=== PATIENT | female | born 1950 | race Caucasian/White ===

== ENCOUNTER 2020-11-04 15:46 | Inpatient (IN) ==
[2020-11-04] MEDS ORDERED: fentaNYL CITRATE/PF 50 MCG/ML AMPUL ONE (15:49)
[2020-11-04] MEDS ORDERED: DIPHTH,PERTUSS(ACELL),TET VAC 0.5 ML VIAL IM ONE ×2 (15:50→17:22)
[2020-11-04] MEDS ORDERED: fentaNYL CITRATE/PF 50 MCG/ML AMPUL IV ONE (15:54)
--- NOTE | 2020-11-04 16:03 | ERNOTE ---
Trauma/Assault HPI - Narrative Date of Service: 11/04/20 - General Stated Complaint: injuries from a fall Time Seen by Provider: 11/04/20 15:49 Source: patient Exam Limitations: no limitations - Immun/Allergies/Home Medications Immunizations: IMMUNIZATION HX Immunizations Up to Date Yes History of Influenza Vaccine No Hx Pneumococcal Vaccination No Allergies/Adverse Reactions: Allergies Penicillins Allergy (Intermediate, Verified 11/04/20 15:53) Hives Home Medications: HOME MEDICATIONS Atorvastatin Calcium 80 mg PO DAILY 11/04/20 [Last Taken Unknown] Irbesartan 150 mg PO DAILY 11/04/20 [Last Taken Unknown] Tetrahydrz/Dext 70/Peg 400/Pvp [Eye Drops] 1 ml OP 11/04/20 [Last Taken Unknown] amLODIPine BESYLATE [Norvasc] 5 mg PO DAILY 11/04/20 [Last Taken Unknown] rOPINIRole HCL [Requip] 0.25 mg PO HS 11/04/20 [Last Taken Unknown] - History of Present Illness Narrative: Patient presents to the ED for fall from a ladder with left hip pain. She was up about 3 rungs and lost her balance while painting, falling onto dirt. Pain left hip immediately after fall. Did hit her head, no LOC though. No CP or SOB. No other spinal pain. Denies N/T/W. Left elbow also impacted dirt with abrasion and minimal bleeding but she denies much pain there. Fentanyl 50mcg given by EMS. Location Occurred: Reports: home Pain Location: Reports: other - left hip primarily Method of Injury: Reports: fall Severity: severe Modifying Factors - (Improves): Reports: rest Modifying Factors - (Worsens): Reports: movement Loss of Consciousness: Reports: no loss of consciousness Associated Symptoms - Trauma: Denies: headache, chest pain, shortness of breath, abdominal pain Review of Systems - Review of Systems Constitutional: Absent: fever EYE: Present: no symptoms reported ENT: Present: no symptoms reported Respiratory: Absent: shortness of breath Cardiology: Absent: chest pain Gastrointestinal/Abdominal: Absent: abdominal pain Musculoskeletal: Present: See HPI Skin: Present: See HPI Neurological: Absent: weakness, numbness, tingling All Other Systems: All systems neg except as marked Medical History (Last Reviewed 11/04/20 @ 16:00 by Moses Sheikh MD) CVA (cerebral vascular accident) Diabetes Hypertension Surgical History: Surgical History (Last Reviewed 11/04/20 @ 16:00 by Moses Sheikh MD) H/O chest tube placement H/O lumbar discectomy Hx of appendectomy Hx of hysterectomy Social History: (Last Reviewed 11/04/20 @ 16:00 by Moses Sheikh MD) Tobacco: Smoking Status: Current every day smoker Physical Exam - Physical Exam General Appearance: Present: alert, no apparent distress Head Exam: Present: other - Hematoma left temporal/parietal area. Absent: Ruff's Sign, raccoon eyes Eye Exam: Normal inspection: bilateral, PERRL: bilateral, EOMI: bilateral Ears, Nose, Throat: Present: normal ENT inspection Neck: Present: normal inspection, other - distracting injury. No localizing point vertebral tenderness posterior C-spine. No clinical suggesiton of fracture or ligamentous injury, cleared after CT Respiratory: Present: no respiratory distress, normal breath sounds, no accessory muscle use, lungs clear Cardiovascular/Chest: Present: regular rate, rhythm, normal peripheral pulses Gastrointestinal/Abdominal: Present: normal bowel sounds, nontender, nondistended, soft Back Exam: Absent: vertebral tenderness, decreased range of motion Extremity Exam: Present: other - Tenderness left hip with abrasiona left lateral hip. Mild left elbow tenderness. Full ROM there though. No other point bone tenderness Neurological Exam: Present: alert, no motor/sensory deficits Skin Exam: Present: normal color, warm/dry, other - abrasion left elbow, no laceration to repair. Progress - Results and Orders Patient's Lab Results:: I have reviewed the patient's lab results. - Vital Signs Patient's Vital Signs:: I have reviewed the patient's vital signs. Vital Signs: Vital Signs 11/04/20 15:46 Temperature 36.7 C Pulse Rate 74 Respiratory Rate 17 Blood Pressure 165/70 H O2 Sat by Pulse Oximetry 93 - EKG EKG #1 EKG: NSR EKG read: Interp. by me EKG Comments: NSR rate 73. NSR rate 73. PVCs, no evidence of STEMI - X-Ray X-Ray #1 X-Ray: chest Interpretation: Interp. by me X-ray Comments: No real time radiology reads. I personally reviewed all x-ray images, no acute chest process noted. X-Ray #2 X-Ray: elbow Interpretation: Interp. by me X-ray Comments: No real time radiology reads. I personally reviewed all x-ray images, no acute fracture noted. X-Ray #3 X-Ray: hip Interpretation: Interp. by me X-ray Comments: No real time radiology reads. I personally reviewed all x-ray images, acute subcapital hip fracture noted. - CT/Ultrasound CT/Ultrasound Narrative: I reviewed the official radiology reports for CT head and c-spine - Progress/Reassessment Progress Note-Subjective: 11/04/20 17:37 Patient given IV pain medications. I Carlos'gabriel Jacinto with x-ray images, patient to be admitted to the hospital and Ortho will be consulted. 11/04/20 18:[address] Dunbar who is air conditioning technician for IM. He will admit, requests HGBA1C which I added on. UA still pending at this time. Departure Clinical Impression: Fall from ladder, Head injury, Musculoskeletal pain, Closed left hip fracture, Injury of left elbow - Departure Disposition: Still a patient Condition: Fair Critical Care Time - Critical Care Critical Time Spent:: No
[2020-11-04] MEDS ORDERED: LORazepam 2 MG/ML DISP.SYRIN IV ONE (16:23)
[2020-11-04] MEDS ORDERED: NORMAL SALINE 1,000 ML IV ONE (17:03)
[2020-11-04 17:38] LABS: Mean Cell Volume 89.8 fl (78-100); Mean Corpuscular Hemoglobin 28.6 pg (27-31); Mean Corpuscular Hgb Conc 31.8 g/dl (32-36); Mean Platelet Volume 11.2 fl (8-12.5); Neutrophil # 8.5 K/mm3 (1.3-6.0); Neutrophil % 78.9 % (42-75.0); Platelet Count 169 K/mm3 (150-450); Red Cell Distribution Width 13.1 % (11.5-14.0); White Blood Count 10.7 K/mm3 (4.0-10.5)
[2020-11-04 17:53] LABS: Urine Bilirubin Negative (NEGATIVE); Urine Blood Negative /ul (NEGATIVE); Urine Ketone Negative (NEGATIVE); Urine Protein Negative (NEGATIVE); Urine Specific Gravity 1.025 SP.GR. (1.005-1.010); Urine Urobilinogen Normal (NORMAL)
[2020-11-04 17:55] LABS: Prothrombin Time (Patient) 10.5 Seconds (9.1-10.7)
[2020-11-04 17:58] LABS: INR 1.01 INR (0.92-1.08); Partial Thrombolplastin Time 25.3 Seconds (24-32)
[2020-11-04 18:00] LABS: Albumin * 3.8 gm/dl (3.4-5.0); Anion Gap 11.9 mmol/L (6.8-13.8); BUN/Creatinine Ratio 10.1 (9.0-21.6); Bilirubin, Total 0.7 mg/dL (0.0-1.1); Ca. Corrected For Albumin 8.2 mg/dL (8.4-10.2); Calcium * 8.4 mg/dL (7.9-10.9); Carbon Dioxide 28.1 mmol/L (24-32.6); Total Protein 7.3 gm/dL (6.2-8.2)
[2020-11-04 18:34] LABS: Urine Appearance Slightly Cloudy (CLEAR); Urine Bacteria 3+; Urine Color Yellow; Urine Nitrite Positive (NEGATIVE); Urine RBC 0-5 /hpf (0-5); Urine WBC 25-50 /hpf (0-5)
[2020-11-04] MEDS ORDERED: LEVOFLOXACIN IN DEXTROSE 5 % 500 MG/100 ML BAG IV ONE (18:35)
[2020-11-04 18:59] LABS: Hemoglobin A1C 6.9 % (3.80-5.60)
[2020-11-04] MEDS: ROSUVASTATIN CALCIUM 20 MG TABLET PO SCH (21:16)
[2020-11-04] MEDS: amLODIPine BESYLATE 5 MG TABLET PO SCH (21:16)
[2020-11-04] MEDS: rOPINIRole HCL 0.5 MG TABLET PO SCH (21:17)
[2020-11-04] MEDS: HYDROmorphone HCL 1 MG/ML DISP.SYRIN IV PRN (21:18)
[2020-11-04] MEDS: TETRAHYDROZOLINE HCL OP SCH (21:24)
[2020-11-05] MEDS: DEXTROSE 5%-0.5 NORMAL SALINE 1,000 ML IV PRN ×2 (02:23→15:46)
[2020-11-05] MEDS: oxyCODONE HCL/ACETAMINOPHEN 1 TAB TABLET PO PRN ×2 (04:31→18:19)
--- NOTE | 2020-11-05 06:05 | HP ---
Chief Complaint - Chief Complaint Date of Service: 11/05/20 Time of Service: 06:05 Chief Complaint: Fall History of Present Illness: Padma Rain is a 70-year-old white female with past medical history of significant for hypertension, diabetes mellitus type 2, history of CVA who was admitted on 11/04/2020 for a fall and left hip pain. She said that she was painting her house blue and was 3 rungs high on a ladder when she lost control and fell to the ground. She immediately felt left hip pain and was not able to stand up. She also hit her left elbow when falling down. Her son called the EMS and she was brought to the emergency room. She denied any chest pains, palpitations, diaphoresis, tremors, blunting of vision before she fell down. She did not lose consciousness. In the emergency room she was found to have mild leukocytosis, Cr 1.29, normal platelets, urinalysis with possible urinary tract infection, and a left subcapital hip fracture. Her x-rays were shown to orthopedics and they will be seeing patient today. She was then admitted for orthopedic intervention. Medical History (Last Reviewed 11/04/20 @ 21:53 by Sunitha Gaviria RN) CVA (cerebral vascular accident) Diabetes Hypertension Surgical History: Surgical History (Last Reviewed 11/04/20 @ 21:53 by Sunitha Gaviria RN) H/O chest tube placement H/O lumbar discectomy Hx of appendectomy Hx of hysterectomy Social History: (Last Updated 11/04/20 @ 21:54 by Sunitha Gavirai RN) Tobacco: Smoking Status: Current every day smoker tobacco type: cigarettes Smoking packs per day: 2 quit status: not considering quitting Alcohol: alcohol intake: former Substance Use: substance use type: does not use Review Of Systems (GEN) - Review of Systems Generalized/Overall Review: Absent: Weakness, Chills, Fever EENTM: Absent: Blurred Vision Respiratory: Absent: Cough, Shortness of Breath, Orthopnea Cardiac: Absent: Chest Pain, Edema, Palpitations Abdominal: Absent: Nausea, Vomiting, Abdominal Pain Genitourinary: Present: Frequency. Absent: Urgency, Dysuria Musculoskeletal: Present: Joint Pain Neurological: Absent: Headache Skin: Absent: Lesions, Rash Misc: All systems neg except as marked Immunizations: IMMUNIZATION HX Immunizations Up to Date Yes History of Influenza Vaccine No Hx Pneumococcal Vaccination No Allergies/Adverse Reactions: Allergies Allergy/AdvReac Type Severity Reaction Status Date / Time Penicillins Allergy Intermediate Hives Verified 11/04/20 15:53 Home Medications: HOME MEDICATIONS Atorvastatin Calcium 80 mg PO HS 11/04/20 [Last Taken Unknown] Irbesartan 150 mg PO DAILY 11/04/20 [Last Taken Unknown] Tetrahydrz/Dext 70/Peg 400/Pvp [Eye Drops] 1 ml OP BID 11/04/20 [Last Taken Unknown] amLODIPine BESYLATE [Norvasc] 5 mg PO HS 11/04/20 [Last Taken Unknown] rOPINIRole HCL [Requip] 0.25 mg PO HS 11/04/20 [Last Taken Unknown] Exam - Exam Vital Signs: Vital Signs - Last Taken Temp 36.5 C 11/05/20 02:27 Pulse 82 11/05/20 02:27 Resp 20 11/05/20 02:27 BP 153/71 H 11/05/20 02:27 Pulse Ox 94 11/05/20 02:27 Constitutional: Present: Alert, Oriented x3, Cooperative ENT Exam: Present: hearing grossly normal Eye Exam: bilateral eye: normal inspection, PERRL, EOMI Neck: Present: supple. Absent: lymphadenopathy (R), lymphadenopathy (L) Respiratory: Present: normal breath sounds, No rales, No wheezing Cardiovascular/Chest: Present: regular rate, rhythm, no JVD, no murmur Abdomen: Present: Normal bowel sounds, soft, nontender, obese Extremity: Present: no calf tenderness. Absent: lower extremity edema Diagnostic Studies: Abnormal Lab Results 11/04/20 11/04/20 11/04/20 Range/Units 17:25 17:25 17:25 WBC 10.7 H (4.0-10.5) K/mm3 MCHC 31.8 L (32-36) g/dl Immature Gran % (Auto) 0.70 H (0.001-0.429) % Immature Gran # (Auto) 0.07 H (0.000-0.0310) K/mm3 Neutrophils % 78.9 H (42-75.0) % Lymphocytes % 13.2 L (20-51) % Neutrophils # 8.5 H (1.3-6.0) K/mm3 Lymphocytes # 1.41 L (1.5-3.5) k/mm3 Sodium 143 H (132-142) mmol/L Plasma Sodium 144 H (130-142) mmol/L Chloride 107 H (97-106) mmol/L Est GFR (Non-Af Amer) 43 L (60-130) mL/min Random Glucose 135 H (70-110) mg/dL Hemoglobin A1c 6.9 H (3.80-5.60) % Calcium Adj for Albumin 8.2 L (8.4-10.2) mg/dL Urine Nitrate (NEGATIVE) Ur Leukocyte Esterase (NEGATIVE) /ul Urine WBC (0-5) /hpf Urine Bacteria (NONE) 11/04/20 Range/Units 17:45 WBC (4.0-10.5) K/mm3 MCHC (32-36) g/dl Immature Gran % (Auto) (0.001-0.429) % Immature Gran # (Auto) (0.000-0.0310) K/mm3 Neutrophils % (42-75.0) % Lymphocytes % (20-51) % Neutrophils # (1.3-6.0) K/mm3 Lymphocytes # (1.5-3.5) k/mm3 Sodium (132-142) mmol/L Plasma Sodium (130-142) mmol/L Chloride (97-106) mmol/L Est GFR (Non-Af Amer) (60-130) mL/min Random Glucose (70-110) mg/dL Hemoglobin A1c (3.80-5.60) % Calcium Adj for Albumin (8.4-10.2) mg/dL Urine Nitrate Positive H (NEGATIVE) Ur Leukocyte Esterase 75 H (NEGATIVE) /ul Urine WBC 25-50 H (0-5) /hpf Urine Bacteria 3+ H (NONE) Laboratory Results WBC 10.7 K/mm3 (4.0-10.5) H 11/04/20 17:25 RBC 4.90 M/mm3 (4.2-5.4) 11/04/20 17:25 Hgb 14.0 gm/dL (12.5-16.0) 11/04/20 17:25 Hct 44.0 % (37.0-47.0) 11/04/20 17:25 MCV 89.8 fl (78-100) 11/04/20 17:25 MCH 28.6 pg (27-31) 11/04/20 17:25 MCHC 31.8 g/dl (32-36) L 11/04/20 17:25 RDW 13.1 % (11.5-14.0) 11/04/20 17:25 Plt Count 169 K/mm3 (150-450) 11/04/20 17:25 MPV 11.2 fl (8-12.5) 11/04/20 17:25 Immature Gran % (Auto) 0.70 % (0.001-0.429) H 11/04/20 17:25 Immature Gran # (Auto) 0.07 K/mm3 (0.000-0.0310) H 11/04/20 17:25 Neutrophils % 78.9 % (42-75.0) H 11/04/20 17:25 Lymphocytes % 13.2 % (20-51) L 11/04/20 17:25 Monocytes % 6.3 % (0.0-9) 11/04/20 17:25 Eosinophils % 0.6 % (0.0-3.0) 11/04/20 17:25 Basophils % 0.3 % (0.0-1.0) 11/04/20 17:25 Nucleated RBC % 0.0 k/mm3 (0-1) 11/04/20 17:25 Neutrophils # 8.5 K/mm3 (1.3-6.0) H 11/04/20 17:25 Lymphocytes # 1.41 k/mm3 (1.5-3.5) L 11/04/20 17:25 Monocytes # 0.7 k/mm3 (0.0-1.0) 11/04/20 17:25 Eosinophils # 0.1 k/mm3 (0.0-0.7) 11/04/20 17:25 Absolute Basophils 0.0 k/mm3 (0.0-0.1) 11/04/20 17:25 PT 10.5 Seconds (9.1-10.7) 11/04/20 17:25 INR (Anticoag Therapy) 1.01 INR (0.92-1.08) 11/04/20 17:25 PTT ([place]ham) 25.3 Seconds (24-32) 11/04/20 17:25 Sodium 143 mmol/L (132-142) H 11/04/20 17:25 Plasma Sodium 144 mmol/L (130-142) H 11/04/20 17:25 Potassium 4.0 mmol/L (3.4-4.6) 11/04/20 17:25 Chloride 107 mmol/L (97-106) H 11/04/20 17:25 Carbon Dioxide 28.1 mmol/L (24-32.6) 11/04/20 17:25 Anion Gap 11.9 mmol/L (6.8-13.8) 11/04/20 17:25 BUN 13 mg/dL (3-23) 11/04/20 17:25 Creatinine 1.29 mg/dL (0.4-1.4) 11/04/20 17:25 Est GFR (Non-Af Amer) 43 mL/min (60-130) L 11/04/20 17:25 BUN/Creatinine Ratio 10.1 (9.0-21.6) 11/04/20 17:25 Random Glucose 135 mg/dL (70-110) H 11/04/20 17:25 Mean Blood Glucose 151 mg/dL 11/04/20 17:25 Hemoglobin A1c 6.9 % (3.80-5.60) H 11/04/20 17:25 Calcium 8.4 mg/dL (7.9-10.9) 11/04/20 17:25 Calcium Adj for Albumin 8.2 mg/dL (8.4-10.2) L 11/04/20 17:25 Total Bilirubin 0.7 mg/dL (0.0-1.1) 11/04/20 17:25 AST 18 U/L (0-48) 11/04/20 17:25 ALT 22 U/L (19-67) 11/04/20 17:25 Alkaline Phosphatase 89 U/L (50-170) 11/04/20 17:25 Total Protein 7.3 gm/dL (6.2-8.2) 11/04/20 17:25 Albumin 3.8 gm/dl (3.4-5.0) 11/04/20 17:25 Urine Color Yellow 11/04/20 17:45 Urine Appearance Slightly cloudy (CLEAR) 11/04/20 17:45 Urine pH 6.0 pH (5.0-7.0) 11/04/20 17:45 Ur Specific [place] 1.025 SP.GR. (1.005-1.010) 11/04/20 17:45 Urine Protein Negative mg/dL (NEGATIVE) 11/04/20 17:45 Urine Glucose (UA) Negative mg/dL (NEGATIVE) 11/04/20 17:45 Urine Ketones Negative mg/dL (NEGATIVE) 11/04/20 17:45 Urine Blood Negative /ul (NEGATIVE) 11/04/20 17:45 Urine Nitrate Positive (NEGATIVE) H 11/04/20 17:45 Urine Bilirubin Negative mg/dl (NEGATIVE) 11/04/20 17:45 Urine Urobilinogen Normal EU/dl (NORMAL) 11/04/20 17:45 Ur Leukocyte Esterase 75 /ul (NEGATIVE) H 11/04/20 17:45 Urine RBC 0-5 /hpf (0-5) 11/04/20 17:45 Urine WBC 25-50 /hpf (0-5) H 11/04/20 17:45 Ur Epithelial Cells Trace /hpf (0-5) 11/04/20 17:45 Urine Bacteria 3+ (NONE) H 11/04/20 17:45 Urine Culture Comments Culture to follow 11/04/20 17:45 SARS-CoV-2 (PCR) Not detected (NotDetected) 11/04/20 18:00 Assessment/Plan - Narrative Narrative: Padma is a 70-year-old white female who was admitted for a fall and left hip pain. Her EKG showed normal sinus rhythm with premature ventricular contraction and her chest x-ray showed no acute cardiopulmonary findings. Her head and cervical CT scan showed no acute injuries. Her left elbow x-ray showed no acute osseous findings. She has a subcapital femoral neck fracture left hip. She has low risk of adverse outcome from myocardial infarction, pulmonary edema, ventricular fibrillation and cardiac arrest with her surgery. We will give her IV Rocephin for her UTI. Orthopedic was informed by emergency room. She may proceed with anticipated surgery. - Assessment/Plan (1) Fall from ladder Problem: Acute (2) Closed left hip fracture Problem: Acute (3) Injury of left elbow Problem: Acute (4) Head injury Problem: Acute (5) UTI (urinary tract infection) Problem: Acute (6) Hypertension Problem: Chronic Qualifiers: Hypertension type: essential hypertension Qualified Code(s): I10 - Essential (primary) hypertension
--- NOTE | 2020-11-05 07:47 | CONS ---
[facility] - General Date of Service: 11/05/20 Narrative: 70-year-old female presents today status post a fall off a ladder landing on her left hip. Patient notes she is baseline ambulator at home without assistive device. She has significant hip pain however right now is well controlled. She notes she has worse pain with better with rest. Patient otherwise denies any previous hip pain. Patient does have significant past medical history hypertension, stroke, diabetes. Patient reports no other acute events or sick contacts. - History of Present Illness Allergies/Adverse Reactions: Allergies Penicillins Allergy (Intermediate, Verified 11/04/20 15:53) Hives Home Medications: Home Medications Medication Instructions Recorded Last Taken Atorvastatin Calcium 80 mg PO HS 11/04/20 Unknown Irbesartan 150 mg PO DAILY 11/04/20 Unknown Tetrahydrz/Dext 70/Peg 400/Pvp 1 ml OP BID 11/04/20 Unknown [Eye Drops] amLODIPine BESYLATE [Norvasc] 5 mg PO HS 11/04/20 Unknown rOPINIRole HCL [Requip] 0.25 mg PO HS 11/04/20 Unknown Procedures Other peripheral nerve or ganglion decompression or lysis of adhesions (12/21/06) Medications - Medications Current Medications: Current Medications Amlodipine Besylate (Amlodipine Besylate 5 Mg Tablet) 5 mg PO HS [facility] Stop: 12/04/20 21:01 Last Admin: 11/04/20 21:16 Dose: 5 mg Documented by: Hydromorphone HCl (Hydromorphone Hcl 1 Mg/Ml Disp.Syrin) 1 mg IV Q6H PRN PRN Reason: Pain Stop: 12/04/20 20:51 Last Admin: 11/04/20 21:18 Dose: 1 mg Documented by: Dextrose/Sodium Chloride (Dextrose 5%-0.45%Ns) 1,000 mls @ 75 mls/hr IV .[id number] PRN PRN Reason: HYDRATION Stop: 12/05/20 20:18 Last Admin: 11/05/20 02:23 Dose: 75 mls/hr Documented by: Oxycodone/Acetaminophen (Oxycodone Hcl/Acetaminophen 1 Tab Tablet) 1 tab PO Q4H PRN PRN Reason: Moderate Pain (pain scale 4-6) Stop: 12/04/20 20:21 Last Admin: 11/05/20 04:31 Dose: 1 tab Documented by: Ropinirole HCl (Ropinirole Hcl 0.5 Mg Tablet) 0.25 mg PO [facility] Stop: 12/04/20 21:16 Last Admin: 11/04/20 21:17 Dose: 0.25 mg Documented by: Rosuvastatin Calcium (Rosuvastatin Calcium 20 Mg Tablet) 40 mg PO [facility] Stop: 12/04/20 21:16 Last Admin: 11/04/20 21:16 Dose: 40 mg Documented by: Tetrahydrozoline HCl (Tetrahydrozoline Hcl 150 Drop Btl) 1 drop OP BID [facility] Stop: 12/04/20 21:16 Last Admin: 11/04/20 21:24 Dose: Not Given Documented by: Review of Systems - Review of Systems Musculoskeletal: Present: Joint Pain Physical Examination - Exam Vital Signs: Vital Signs - Last Taken Temp 37.1 C 11/05/20 06:00 Pulse 73 11/05/20 06:00 Resp 12 11/05/20 06:00 BP 136/75 11/05/20 06:00 Pulse Ox 92 L 11/05/20 06:00 O2 Oxygen Delivery Method Room Air Constitutional: Present: Alert, Cooperative, No distress Extremity: Present: other - LLE--> sensation intact to light touch, 5/5 plantar flexion dorsiflexion ankle, no significant wounds or deformity, diffuse mild tenderness about left hip, capillary refill brisk Skin Exam: Present: normal color Appearance: Present: appropriate appearance Eye contact: Present: cooperative Thoughts: Present: normal thought pattern - Results and Findings: Lab/Microbiology results last 24 hrs: Abnormal/Pending Laboratory Last 24 HRS 11/04/20 11/04/20 11/04/20 17:45 17:25 17:25 WBC MCHC Immature Gran % (Auto) Immature Gran # (Auto) Neutrophils % Lymphocytes % Neutrophils # Lymphocytes # Sodium 143 H Plasma Sodium 144 H Chloride 107 H Est GFR (Non-Af Amer) 43 L Random Glucose 135 H Hemoglobin A1c 6.9 H Calcium Adj for Albumin 8.2 L Urine Nitrate Positive H Ur Leukocyte Esterase 75 H Urine WBC 25-50 H Urine Bacteria 3+ H 11/04/20 17:25 WBC 10.7 H MCHC 31.8 L Immature Gran % (Auto) 0.70 H Immature Gran # (Auto) 0.07 H Neutrophils % 78.9 H Lymphocytes % 13.2 L Neutrophils # 8.5 H Lymphocytes # 1.41 L Sodium Plasma Sodium Chloride Est GFR (Non-Af Amer) Random Glucose Hemoglobin A1c Calcium Adj for Albumin Urine Nitrate Ur Leukocyte Esterase Urine WBC Urine Bacteria - Assessments/Findings (1) Closed left hip fracture Problem: Acute Qualifiers: Encounter type: initial encounter Qualified Code(s): S72.002A - Fracture of unspecified part of neck of left femur, initial encounter for closed fracture Plan - Plan Plan: 70-year-old female presented to the ED status post a fall with a left femoral neck fracture. Fracture significantly displaced on x-ray. Patient was evaluated by medicine team and surgical risk considered. Discussed with patient possible treatment option including conservative or surgical intervention discussed risk first benefits including but not limited to infection, bleeding, DVT risk, continued pain, loss of range of motion or function, nerve injury, fracture, inherent risk of surgery, cardiac and stroke risk. Patient elected to proceed with surgical intervention of a left hemiarthroplasty. Consent was obtained all questions were answered. Patient's surgical site was marked appropriately. Plan to proceed with surgical intervention on 11/05/2020. Patient will continue in her care postoperatively for further care. Will maintain patient pain control at this time until surgical intervention.
--- NOTE | 2020-11-05 08:05 | ANES ---
Anesthesia Pre Procedure Eval Vitals/Labs: Last Vital Signs Temp 37.1 C 11/05/20 06:00 Pulse 73 11/05/20 06:00 Resp 12 11/05/20 06:00 BP 136/75 11/05/20 06:00 Pulse Ox 92 L 11/05/20 06:00 Hemoglobin A1c 6.9 % (3.80-5.60) H 11/04/20 17:25 HOME MEDICATIONS Atorvastatin Calcium 80 mg PO HS 11/04/20 [Last Taken Unknown] Irbesartan 150 mg PO DAILY 11/04/20 [Last Taken Unknown] Tetrahydrz/Dext 70/Peg 400/Pvp [Eye Drops] 1 ml OP BID 11/04/20 [Last Taken U nknown] amLODIPine BESYLATE [Norvasc] 5 mg PO HS 11/04/20 [Last Taken Unknown] rOPINIRole HCL [Requip] 0.25 mg PO HS 11/04/20 [Last Taken Unknown] Allergies/Adverse Reactions: Allergies Allergy/AdvReac Type Severity Reaction Status Date / Time Penicillins Allergy Intermediate Hives Verified 11/04/20 15:53 - Planned Procedure Planned Procedure: HIP FRACTURE Medication List Reviewed:: Yes Allergies Verified: Yes Medical History (Last Reviewed 11/05/20 @ 08:04 by Moses Gresham CRNA) CVA (cerebral vascular accident) Diabetes Hypertension Surgical History (Last Reviewed 11/05/20 @ 08:04 by Moses Gresham CRNA) H/O chest tube placement H/O lumbar discectomy Hx of appendectomy Hx of hysterectomy - Family Anesthesia History Family History:: no untoward family reactions to anesthesia - Airway/Neck/Teeth Within Normal Limits:: Yes Teeth Condition: none Neck Exam: full range of motion Mallampatti Score: 2 Thyromental (T-M) distance: > 6 cm Mandibulo Hyoid distance: > 3 cm - Respiratory Respiratory Physical: decreased breath sounds Smoking Status: Current every day smoker Discussed smoking cessation including day of surgery: Yes Sleep Apnea currently treated: No Sleep Apnea by current assessment: No - Cardiovascular Cardiac History: CVA/stroke, hypertension Tolerate Activity: Fair Heart Sounds: S1 & S2, Regular - Gastrointestinal NPO since: [place] - Anesthesia Assessment and Plan ASA Class: PS, III Anesthesia Type Plan: Spinal Planned difficult intubation/equipment available: No
[2020-11-05] MEDS: CIPROFLOXACIN IN 5 % DEXTROSE 200 MG/100 ML BAG IV SCH ×2 (08:43→19:06)
[2020-11-05] MEDS: INSULIN LISPRO 100 UNITS/ML VIAL SC SCH ×3 (08:50→18:25)
[2020-11-05] MEDS: LOSARTAN POTASSIUM 50 MG TABLET PO SCH (08:51)
[2020-11-05] MEDS: TETRAHYDROZOLINE HCL OP SCH ×2 (08:53→21:06)
[2020-11-05] MEDS: RINGER'S SOLUTION,LACTATED 1,000 ML IV PRN ×3 (10:33→14:00)
[2020-11-05] MEDS: HYDROmorphone HCL 1 MG/ML DISP.SYRIN IV PRN ×2 (10:36→16:40)
[2020-11-05] MEDS ORDERED: ceFAZolin SODIUM 1 GM VIAL ONE (11:39)
[2020-11-05] MEDS ORDERED: LIDOCAINE HCL 20 ML VIAL ONE (12:20)
[2020-11-05] MEDS ORDERED: PROPOFOL VIAL IV ONE (12:20)
--- NOTE | 2020-11-05 14:25 | OR ---
Operative Report - Dictated Report Narrative: Date: 11/05/2020 Preoperative diagnosis: Closed left hip displaced femoral neck fracture. Postoperative diagnosis: Closed left hip displaced femoral neck fracture Procedure: Left hip victoriano-arthroplasty. Surgeon: Rodney Chao M.D. Tool And Die Maker: Lucian Jacinto PA-C (provided essential set of skilled, educated hands that assisted with transfer, positioning, prepping, draping, retraction, manipulation, placement of implants, irrigation, closure wounds, and application of dressings all of which could not be performed by the available surgical crew) Anesthesia: Spinal Complications: None Specimens: Bone. Estimated blood loss: 100 milliliters. Retained implants: Depuy [place] size 5 standard porocoat femoral stem. Size 47 millimeter outside diameter self-centering bipolar head with + 5 millimeter cobalt chromium 28 mm femoral head. Indications: Mrs. Rain is a 70-year-old female who fell and broke her left hip. This patient was evaluated on the floor and found to have sustained a displaced femoral neck fracture. The risks and benefits were discussed with the patient as well as any power of patent attorney or family . The patient wished to proceed with surgical treatment. The risks, benefits, and alternatives discussed were , blood clots, bleeding, infection, nerve/tendon blood vessel/ injury, malposition of components, dislocation and/or instability of joint, intraoperative fracture, postoperative limited range of motion, persistent pain, failure of components, and need for additional procedures. Patient wished to proceed. Consent was obtained after answering all questions. Procedure: After marking the correct extremity on the floor, the patient was taken to the operating room. A timeout was performed. IV antibiotics consisting of Ancef were administered prior to the procedure. A spinal anesthetic was induced by anesthesia. A Felix catheter was inserted if not are in place. The patient was then transitioned to a lateral position on a well- padded pegboard. An axillary roll was placed. The head was in neutral position. The non-operative down leg was well-padded with SCD and CHARIS hose in place. The arms were supported and padded to protect from any undue pressure on the bony prominences and nerves. Well-padded anterior and posterior pelvic and chest posts were secured in order to maintain a stable position of the pelvis. This was placed so that the pelvis was perpendicular to the floor. The body was in line with the pelvis. Once it was felt that we had protected all the bony prominences and the patient was well secured with a safety belt as well, the leg was pre-scrubbed with alcohol, prepped and draped in a standard sterile fashion. A standard anterior lateral hip incision was marked out over the greater trochanter. Ioban drapes were then placed. The skin incision was then made. Sharp dissection with a scalpel utilizing cautery for hemostasis was carried out down to the gluteus and iliotibial band fascia. This was split in line with the skin incision. The greater trochanter bursa was excised. The anterior and posterior margins of the abductor tendon were identified. The anterior 1/2-1/3 of the tendon was tagged and reflected off the greater trochanter leaving a sleeve of tendon for repair at the completion of the case. This exposed the underlying hip joint capsule. An inverted T-type capsulotomy was made extending this up to the brim of the acetabulum. We encountered a hematoma at this point confirming an acute fracture as well as noted displacement of the femoral neck fracture. Using Homans to assist with elevation of the soft tissues off the anterior, superior, and inferior aspects of the femoral neck, the hip was then placed in a figure 4 position for a femoral neck cleanup cut to be made. With the leg in an externally rotated and adducted position, the cutting flag was utilized in order to sg for a standard femoral neck cut approximately a fingerbreadth above the level of the lesser trochanter. This was done while protecting the surrounding soft tissues with Homans. The femoral head was then removed and sized for guidance on the size of the bipolar head. It was noted that there was no significant loss of articular cartilage on both the femoral head and weightbearing portions of the acetabulum. We then returned the leg to the table and turned our attention to the acetabulum. While protecting the surrounding soft tissues, the labrum and remaining tissue in the fovea were excised using a scalpel and cautery. The acetabulum was then protected with a sponge while we returned our attention to the femur. With the leg in a figure 4 position utilizing Homans for soft tissue protection, a box cutting osteotome, followed by Charrudyey awl, followed by serial reamers and broaches were utilized in order to prepare the femur. It was found that a size 5 standard broach gave good axial and rotational stability. The proximal femur was visualized to ensure that there were no signs of fracture. A series of heads were trialed. It was found that a + 5 mm femoral head gave good overall stability. There was minimal longitudinal instability. Hip range of motion was able to reach full extension and external rotation to greater than 75 degrees prior to impingement along the posterior acetabulum. The hip was able to be flexed to greater than 90 degrees with internal rotation greater than 60 degrees prior to anterior impingement. The limb lengths were near equal based on comparison to the contralateral side . At this point it was felt these were the appropriately sized femoral components as well as neck and femoral head. The trial implants were removed. The canal was thoroughly irrigated. The stem was impacted. The final femoral bipolar head was then impacted in the place. The hip was then reduced and seated completely. The capsule was repaired with a single interrupted #1 Vicryl. The abductor tendon was repaired to the greater trochanter utilizing #5 Ethibond through drill holes. This was oversewn with #1 Vicryl. The fascia was closed with interrupted #1 Vicryl and Stratafix barbed suture. The wounds were thoroughly irrigated as we closed in layers. The deep and subcutaneous fat layers were closed with 0 Vicryl. The subcutaneous tissue was closed with a running 3-0 Vicryl and the skin with james. All sponge, needle, blade, and instrument counts were correct prior to closing the wounds. Sterile dressings consisting of Xeroform, 4 x 4's, ABD, and tape were applied. The patient was awoken and transferred to her hospital bed and then to the postanesthesia care unit in stable condition. Postoperative condition: The plan is to return to the medical/surgical inpatient floor postoperatively. Postoperatively 24 hours of IV antibiotics, pain control, physical therapy, occupational therapy, and medical comanagement will be utilized. Patient will be weightbearing as tolerated with anterior hip precautions. Postoperative films will be obtained in the recovery room.
[2020-11-05] MEDS ORDERED: MAGNESIUM HYDROXIDE 30 ML UDC PO PRN (14:26)
[2020-11-05] MEDS ORDERED: MAG HYDROX/ALUMINUM HYD/SIMETH 30 ML UDC PO PRN (14:26)
[2020-11-05] MEDS ORDERED: ACETAMINOPHEN 500 MG TABLET PO PRN (14:26)
--- NOTE | 2020-11-05 14:40 | ANES ---
Post Anesthesia Discharge - Transfer of Care Transfer of Care handoff given to nurse: Yes - Discharge from PACU Discharge from PACU when meets criteria: Yes - Discharge to ASU Discharge to ASU-no complications/pt stable: Yes
--- NOTE | 2020-11-05 14:48 | ANES ---
Post Anesthesia Assessment - Vital Signs Vitals: Last Vital Signs Temp 36.5 C 11/05/20 14:45 Pulse 78 11/05/20 14:45 Resp 16 11/05/20 14:45 BP 114/85 11/05/20 14:45 Pulse Ox 93 11/05/20 14:45 Airway Patency: Normal - Mental Status Level Of Consciousness: Awake - Pain Level Pain Score: 0 - N/V Assessment Nausea/Vomiting Presence: None Dehydration:: No
[2020-11-05] MEDS: ceFAZolin SODIUM 1 GM in DEXTROSE 5 % IN WATER 100 ML IV SCH ×4 (15:55→22:21)
[2020-11-05] MEDS: ROSUVASTATIN CALCIUM 20 MG TABLET PO SCH (21:05)
[2020-11-05] MEDS: amLODIPine BESYLATE 5 MG TABLET PO SCH (21:05)
[2020-11-05] MEDS: rOPINIRole HCL 0.5 MG TABLET PO SCH (21:05)
[2020-11-05] MEDS: SENNOSIDES/DOCUSATE SODIUM 1 TAB TABLET PO SCH (21:06)
[2020-11-06] MEDS: HYDROmorphone HCL 1 MG/ML DISP.SYRIN IV PRN (01:19)
[2020-11-06] MEDS: ceFAZolin SODIUM 1 GM in DEXTROSE 5 % IN WATER 100 ML IV SCH ×2 (04:33)
[2020-11-06] MEDS: oxyCODONE HCL/ACETAMINOPHEN 1 TAB TABLET PO PRN ×3 (04:37→17:49)
[2020-11-06] MEDS ORDERED: TRANEXAMIC ACID IN NACL,ISO-OS 1,000 MG/100 ML BAG IV PRN (06:00)
[2020-11-06] MEDS ORDERED: ceFAZolin SODIUM 1 GM VIAL IV PRN (06:00)
[2020-11-06 06:51] LABS: Hematocrit 39.1 % (37.0-47.0); Hemoglobin 12.4 gm/dL (12.5-16.0); Mean Cell Volume 88.5 fl (78-100); Mean Corpuscular Hemoglobin 28.1 pg (27-31); Mean Corpuscular Hgb Conc 31.7 g/dl (32-36); Mean Platelet Volume 11.5 fl (8-12.5); Platelet Count 130 K/mm3 (150-450); Red Blood Count 4.42 M/mm3 (4.2-5.4); Red Cell Distribution Width 12.6 % (11.5-14.0); White Blood Count 7.7 K/mm3 (4.0-10.5)
[2020-11-06 07:00] LABS: Anion Gap 10.3 mmol/L (6.8-13.8); BUN/Creatinine Ratio 8.8 (9.0-21.6); Calcium * 7.7 mg/dL (7.9-10.9); Carbon Dioxide 27.2 mmol/L (24-32.6); Estimated Creat Clear 63.6; Potassium 3.5 mmol/L (3.4-4.6)
[2020-11-06] MEDS: CIPROFLOXACIN IN 5 % DEXTROSE 200 MG/100 ML BAG IV SCH ×2 (07:23→20:04)
[2020-11-06] MEDS: INSULIN LISPRO 100 UNITS/ML VIAL SC SCH ×3 (07:31→17:24)
--- NOTE | 2020-11-06 08:56 | PN ---
Subjective - Date and Time Seen Date: 11/06/20 Time: 08:53 Subjective Narrative: Subjective: Reports hip pain. Sitting at the bedside. Voiding without any complications. Tolerating by mouth intake. Denies any nausea or vomiting. Denies calf pain. Physical exam: Alert and oriented to person, place and time Left lower extremity: Palpable dorsalis pedis pulse. Sensation grossly intact to light touch. Dressings clean and dry. Able to flex and extend ankle and toes. No excessive drainage. Calf and thigh are soft and nontender. Assessment: Postop day 1 status post left hip hemiarthroplasty. Plan: Continue with physical and occupational therapy weightbearing as tolerated. Continue with anticoagulation -she will need 10 days of Lovenox and then follow that with 81 mg aspirin twice daily for an additional month. 24 hours postoperative prophylactic antibiotics. Pain control with goal to rely on oral medications. Continue bowel regimen. Will need 6 weeks with walker or assistive device to protect joint while ambulating during the recovery process. Discharge planning -from an orthopedic standpoint she can be discharged home if she meets her PT goals or to a skilled therapy when medically sound. She will follow-up in approximately 2 weeks with orthopedics. Continue with anterior hip precautions and no active abduction. Keep the wound clean and dry and cover with dry gauze. Objective - Vitals Vitals: Last Vital Signs Temp 36.6 C 11/06/20 06:29 Pulse 87 11/06/20 06:29 Resp 16 11/06/20 06:29 BP 148/66 11/06/20 06:29 Pulse Ox 95 11/06/20 06:29 - Abnormal Lab Findings Abnormal Lab Findings: Abnormal Lab Results 11/06/20 11/06/20 Range/Units 06:20 06:20 Hgb 12.4 L (12.5-16.0) gm/dL MCHC 31.7 L (32-36) g/dl Plt Count 130 L (150-450) K/mm3 BUN/Creatinine Ratio 8.8 L (9.0-21.6) Random Glucose 204 H D (70-110) mg/dL Calcium 7.7 L (7.9-10.9) mg/dL Cauti Physician Documentation - Urinary Catheter Management Urethral (Felix) Date of Insertion: 11/04/20 Time of Insertion: 17:30 Date of Removal: 11/06/20 Time of Removal: 07:30 Assessment/Plan - Problems/Diagnosis (1) Status post total hip replacement, left Problem: Acute (2) Closed left hip fracture Problem: Acute Qualifiers: Encounter type: subsequent encounter Fracture healing: with routine healing Qualified Code(s): S72.002D - Fracture of unspecified part of neck of left femur, subsequent encounter for closed fracture with routine healing
[2020-11-06] MEDS: LOSARTAN POTASSIUM 50 MG TABLET PO SCH (09:13)
[2020-11-06] MEDS: TETRAHYDROZOLINE HCL OP SCH ×2 (09:14→20:15)
[2020-11-06] MEDS: RIVAROXABAN 20 MG TABLET PO SCH (09:15)
--- NOTE | 2020-11-06 13:07 | PN ---
Subjective - Date and Time Seen Date: 11/06/20 Time: 10:30 Subjective Narrative: Padma reports doing well. She got up to the chair with PT. She denies fever, chills, nausea, vomiting. She does say her appetite is poor. Her pain is controlled. Objective - Vitals Vitals: Last Vital Signs Temp 37.5 C 11/06/20 10:25 Pulse 84 11/06/20 10:25 Resp 20 11/06/20 10:25 BP 116/57 11/06/20 10:25 Pulse Ox 92 L 11/06/20 10:25 - Abnormal Lab Findings Abnormal Lab Findings: Abnormal Lab Results 11/06/20 11/06/20 Range/Units 06:20 06:20 Hgb 12.4 L (12.5-16.0) gm/dL MCHC 31.7 L (32-36) g/dl Plt Count 130 L (150-450) K/mm3 BUN/Creatinine Ratio 8.8 L (9.0-21.6) Random Glucose 204 H D (70-110) mg/dL Calcium 7.7 L (7.9-10.9) mg/dL - Exam Constitutional: Present: Alert, Oriented x3 ENT Exam: Present: hearing grossly normal Respiratory: Present: lungs clear, normal breath sounds Cardiovascular/Chest: Present: regular rate, rhythm, no murmur Abdomen: Present: Normal bowel sounds, soft, nontender, nondistended Skin Exam: Present: normal color, warm/dry, no cyanosis Cauti Physician Documentation - Urinary Catheter Management Urethral (Felix) Date of Insertion: 11/04/20 Time of Insertion: 17:30 Date of Removal: 11/06/20 Time of Removal: 07:30 Assessment/Plan Plan Narrative: Padma is doing well. No changes today. Continue PT for strengthening. - Problems/Diagnosis (1) Closed left hip fracture Problem: Acute Qualifiers: Encounter type: subsequent encounter Fracture healing: with routine healing Qualified Code(s): S72.002D - Fracture of unspecified part of neck of left femur, subsequent encounter for closed fracture with routine healing (2) Status post total hip replacement, left Problem: Acute
[2020-11-06] MEDS: amLODIPine BESYLATE 5 MG TABLET PO SCH (20:12)
[2020-11-06] MEDS: ROSUVASTATIN CALCIUM 20 MG TABLET PO SCH (20:12)
[2020-11-06] MEDS: rOPINIRole HCL 0.5 MG TABLET PO SCH (20:14)
[2020-11-06] MEDS: SENNOSIDES/DOCUSATE SODIUM 1 TAB TABLET PO SCH (20:14)
[2020-11-07] MEDS: oxyCODONE HCL/ACETAMINOPHEN 1 TAB TABLET PO PRN ×3 (00:28→18:44)
[2020-11-07] MEDS: INSULIN LISPRO 100 UNITS/ML VIAL SC SCH ×3 (07:15→17:16)
[2020-11-07] MEDS: CIPROFLOXACIN IN 5 % DEXTROSE 200 MG/100 ML BAG IV SCH ×2 (07:16→18:44)
[2020-11-07] MEDS: TETRAHYDROZOLINE HCL OP SCH ×2 (10:05→20:40)
[2020-11-07] MEDS: LOSARTAN POTASSIUM 50 MG TABLET PO SCH (10:05)
[2020-11-07] MEDS: RIVAROXABAN 20 MG TABLET PO SCH (10:06)
[2020-11-07] MEDS: SENNOSIDES/DOCUSATE SODIUM 1 TAB TABLET PO SCH (20:40)
[2020-11-07] MEDS: ROSUVASTATIN CALCIUM 20 MG TABLET PO SCH (20:40)
[2020-11-07] MEDS: rOPINIRole HCL 0.5 MG TABLET PO SCH (20:40)
[2020-11-07] MEDS: amLODIPine BESYLATE 5 MG TABLET PO SCH (20:47)
--- NOTE | 2020-11-07 22:59 | PN ---
Subjective - Date and Time Seen Date: 11/07/20 Time: 11:00 Subjective Narrative: Padma reports doing well. Pain is controlled. No nausea, vomiting, fever, chills. She reports she does not usually eat that much. Objective - Vitals Vitals: Last Vital Signs Temp 37.7 C 11/07/20 19:45 Pulse 86 11/07/20 20:47 Resp 24 H 11/07/20 19:45 BP 137/77 11/07/20 20:47 Pulse Ox 99 11/07/20 19:45 - Exam Constitutional: Present: Alert, Oriented x3, Cooperative Respiratory: Present: lungs clear, normal breath sounds Cardiovascular/Chest: Present: regular rate, rhythm, no murmur Abdomen: Present: Normal bowel sounds, soft, nontender, nondistended Cauti Physician Documentation - Urinary Catheter Management Urethral (Felix) Date of Insertion: 11/04/20 Time of Insertion: 17:30 Date of Removal: 11/06/20 Time of Removal: 07:30 Assessment/Plan Plan Narrative: Medically doing well. No concerns. Planning to discharge to SNF tomorrow. - Problems/Diagnosis (1) Closed left hip fracture Problem: Acute Qualifiers: Encounter type: subsequent encounter Fracture healing: with routine healing Qualified Code(s): S72.002D - Fracture of unspecified part of neck of left femur, subsequent encounter for closed fracture with routine healing (2) Status post total hip replacement, left Problem: Acute
[2020-11-08] MEDS: oxyCODONE HCL/ACETAMINOPHEN 1 TAB TABLET PO PRN ×2 (05:33→11:09)
[2020-11-08] MEDS: CIPROFLOXACIN IN 5 % DEXTROSE 200 MG/100 ML BAG IV SCH (06:37)
--- NOTE | 2020-11-08 08:31 | DS ---
(1) Fall from ladder Problem: Acute (2) Closed left hip fracture Problem: Acute Qualifiers: Encounter type: subsequent encounter Fracture healing: with routine healing Qualified Code(s): S72.002D - Fracture of unspecified part of neck of left femur, subsequent encounter for closed fracture with routine healing (3) Injury of left elbow Problem: Acute (4) Head injury Problem: Acute (5) UTI (urinary tract infection) Problem: Acute (6) Hypertension Problem: Chronic Qualifiers: Hypertension type: essential hypertension Qualified Code(s): I10 - Essential (primary) hypertension (7) Diabetes mellitus Problem: Acute Qualifiers: Diabetes mellitus type: type 2 Diabetes mellitus care home insulin use: without care home use Date of Discharge:: 11/08/20 Hospital Course: Padma Rain is a 70-year-old white female with past medical history of significant for hypertension, diabetes mellitus type 2, history of CVA who was admitted on 11/04/2020 for a fall and left hip pain. She said that she was painting her house blue and was 3 rungs high on a ladder when she lost control and fell to the ground. She immediately felt left hip pain and was not able to stand up. She also hit her left elbow when falling down. Her son called the EMS and she was brought to the emergency room. She denied any chest pains, palpitations, diaphoresis, tremors, blunting of vision before she fell down. She did not lose consciousness. In the emergency room she was found to have mild leukocytosis, Cr 1.29, normal platelets, urinalysis with possible urinary tract infection, and a left subcapital hip fracture. Her x-rays were shown to orthopedics and they will be seeing patient today. She underwent left hemiarthroplasty by Orthopedics and had PT/OT ost op. She will need continuance of her PT/OT as outpatient and will be on lovenox and ASA for prophylaxis. Her urinalysis grew K.Pneumoniae sensitive to Cipro. Procedures Performed: none Results and Findings: Lab Pending Results 11/04/20 17:25: WBC 10.7 H, RBC 4.90, Hgb 14.0, Hct 44.0, MCV 89.8, MCH 28.6, MCHC 31.8 L, RDW 13.1, Plt Count 169, MPV 11.2, Immature Gran % (Auto) 0.70 H, Immature Gran # (Auto) 0.07 H, Neutrophils % 78.9 H, Lymphocytes % 13.2 L, Monocytes % 6.3, Eosinophils % 0.6, Basophils % 0.3, Nucleated RBC % 0.0, Neutrophils # 8.5 H, Lymphocytes # 1.41 L, Monocytes # 0.7, Eosinophils # 0.1, Absolute Basophils 0.0 11/04/20 17:25: PT 10.5, INR (Anticoag Therapy) 1.01, PTT ([place]) 25.3 11/04/20 17:25: Sodium 143 H, Plasma Sodium 144 H, Potassium 4.0, Chloride 107 H, Carbon Dioxide 28.1, Anion Gap 11.9, BUN 13, Creatinine 1.29, Est GFR (Non-Af Amer) 43 L, BUN/Creatinine Ratio 10.1, Random Glucose 135 H, Calcium 8.4, Calcium Adj for Albumin 8.2 L, Total Bilirubin 0.7, AST 18, ALT 22, Alkaline Phosphatase 89, Total Protein 7.3, Albumin 3.8 11/04/20 17:25: Mean Blood Glucose 151, Hemoglobin A1c 6.9 H 11/04/20 17:45: Urine Color Yellow, Urine Appearance Slightly cloudy, Urine pH 6.0, Ur Specific [place] 1.025, Urine Protein Negative, Urine Glucose (UA) Negative, Urine Ketones Negative, Urine Blood Negative, Urine Nitrate Positive H, Urine Bilirubin Negative, Urine Urobilinogen Normal, Ur Leukocyte Esterase 75 H, Urine RBC 0-5, Urine WBC 25-50 H, Ur Epithelial Cells Trace, Urine Bacteria 3+ H, Urine Culture Comments Culture to follow 11/04/20 18:00: SARS-CoV-2 (PCR) Not detected 11/05/20 14:30: Pathology Specimen Sent to path 11/06/20 06:20: WBC 7.7 D, RBC 4.42, Hgb 12.4 L, Hct 39.1, MCV 88.5, MCH 28.1, MCHC 31.7 L, RDW 12.6, Plt Count 130 L, MPV 11.5 11/06/20 06:20: Sodium 136, Plasma Sodium 138, Potassium 3.5, Chloride 102, Carbon Dioxide 27.2, Anion Gap 10.3, BUN 7, Creatinine 0.80, Est GFR (Non-Af Amer) 75 D, BUN/Creatinine Ratio 8.8 L, Random Glucose 204 H D, Calcium 7.7 L Discharge Location: Home Disposition: Home self-care Condition: Stable Discharge Activity: Weight bearing - as tolerated Discharge Diet: Consistent carbs Referrals: Bindu Dunbar MD [Staff Physician] - Additional Patient Instructions (free text): Follow up with her PCP in 2 weeks. Follow up with Orthopedics in 2 weeks.. Prescriptions (Any new or edited meds): Ciprofloxacin HCl [Cipro] 500 mg PO BID #14 tab Transmission Status: Pending to [facility] #[id number] Enoxaparin Sodium [Lovenox] 40 mg SC Q24H #7 disp.syrin Transmission Status: Pending to [facility] #[id number] oxyCODONE HCL/ACETAMINOPHEN [Percocet 5 MG/325 MG] 1 tab PO Q4H PRN #30 tab PRN Reason: Moderate Pain (Pain Scale 4-6) Transmission Status: Sent to [facility] #[id number] Sennosides/Docusate Sodium [Senokot-S] 2 tab PO HS #60 tab Transmission Status: Pending to [facility] #[id number] Acetaminophen [Tylenol] 1,000 mg PO Q6H PRN #30 tab PRN Reason: Mild Pain (Pain Scale 1-3) Transmission Status: Pending to [facility] #[id number] Complete Home Medications List: Complete Home Medication List: Atorvastatin Calcium 80 mg PO HS 11/04/20 Irbesartan 150 mg PO DAILY 11/04/20 Tetrahydrz/Dext 70/Peg 400/Pvp [Eye Drops] 1 ml OP BID 11/04/20 amLODIPine BESYLATE [Norvasc] 5 mg PO HS 11/04/20 rOPINIRole HCL [Requip] 0.25 mg PO HS 11/04/20 Acetaminophen [Tylenol] 1,000 mg PO Q6H PRN #30 tab 11/08/20 Ciprofloxacin HCl [Cipro] 500 mg PO BID #14 tab 11/08/20 Enoxaparin Sodium [Lovenox] 40 mg SC Q24H #7 disp.syrin 11/08/20 Sennosides/Docusate Sodium [Senokot-S] 2 tab PO HS #60 tab 11/08/20 oxyCODONE HCL/ACETAMINOPHEN [Percocet 5 MG/325 MG] 1 tab PO Q4H PRN #30 tab 11/08/20 Amb Orders for Discharge: PT Evaluation and Treatment* Location: None Selected Forms: Patient Portal Registration
[2020-11-08] MEDS: LOSARTAN POTASSIUM 50 MG TABLET PO SCH (09:43)
[2020-11-08] MEDS: TETRAHYDROZOLINE HCL OP SCH (09:43)
[2020-11-08] MEDS: INSULIN LISPRO 100 UNITS/ML VIAL SC SCH (09:44)
[2020-11-08] MEDS: RIVAROXABAN 20 MG TABLET PO SCH (09:44)
[2020-11-08] MEDS ORDERED: ENOXAPARIN SODIUM 40 MG/0.4 ML SYRG SC SCH (09:45)
--- NOTE | 2020-11-08 09:55 | PN ---
Subjective - Date and Time Seen Date: 11/08/20 Time: 09:54 Subjective Narrative: Subjective: Reports hip pain improved. Sitting in the chair. Walked in el with PT. Voiding without any complications. Tolerating by mouth intake. Denies any nausea or vomiting. Denies calf pain. Physical exam: Alert and oriented to person, place and time Left lower extremity: Palpable dorsalis pedis pulse. Sensation grossly intact to light touch. Dressings clean and dry. Able to flex and extend ankle and toes. No excessive drainage. Calf and thigh are soft and nontender. Assessment: Postop day 3 status post left hip hemiarthroplasty. Plan: Continue with physical and occupational therapy weightbearing as tolerated. Continue with anticoagulation -she will need 7 additional days of Lovenox and then follow that with 81 mg aspirin twice daily for an additional month. Pain control with goal to rely on oral medications. Continue bowel regimen. Will need 6 weeks with walker or assistive device to protect joint while ambulating during the recovery process. Discharge planning -from an orthopedic standpoint she can be discharged home if she meets her PT goals or to a skilled therapy when medically sound. She will follow-up in approximately 2 weeks with orth opedics. Continue with anterior hip precautions and no active abduction. Keep the wound clean and dry and cover with dry gauze. Objective - Vitals Vitals: Last Vital Signs Temp 36.7 C 11/08/20 06:13 Pulse 83 11/08/20 09:43 Resp 20 11/08/20 06:13 BP 123/78 11/08/20 09:43 Pulse Ox 93 11/08/20 06:13 Cauti Physician Documentation - Urinary Catheter Management Urethral (Felix) Date of Insertion: 11/04/20 Time of Insertion: 17:30 Date of Removal: 11/06/20 Time of Removal: 07:30 Assessment/Plan - Problems/Diagnosis (1) Status post total hip replacement, left Problem: Acute (2) Closed left hip fracture Problem: Acute Qualifiers: Qualified Code(s): S72.002D - Fracture of unspecified part of neck of left femur, subsequent encounter for closed fracture with routine healing
[2020-11-08 13:08] VITALS: BP 109/56
== END 2020-11-08 13:35 | disposition home or self-care (01) | DRG 522 ==
LOC: ER 15:46 → MS 19:19
PROVIDERS: ADMIT Internal Medicine; ATTEND Internal Medicine